=== PATIENT | male | born 1960 | race Caucasian/White ===

== ENCOUNTER 2019-02-03 16:07 | Inpatient (IN) ==
--- NOTE | 2019-02-03 17:47 | PROVIDER DOCUMENTATION ---
This chart was entered by Luz Marina Cole Scribe, acting as scribe for Bandar Fajardo MD. HPI-General Adult - General Chief Complaint: Vomiting Stated Complaint: RETURN/RECHECK Time Seen by Provider: 02/03/19 16:10 Source: patient Allergies/Adverse Reactions: Patient Allergies Allergy/AdvReac Type Severity Reaction Status Date / Time No Known Allergies Allergy Verified 01/03/19 02:50 Home Medications: Home Medication List Medication Instructions Recorded Confirmed Last Taken Type Alprazolam [Xanax] 1 mg PO TID 09/03/18 12/30/18 09/01/18 History 1 MG Levothyroxine Sodium [Synthroid] 50 mcg PO DAILY 09/03/18 12/30/18 09/01/18 History 50 MCG Omeprazole [Prilosec] 40 mg PO DAILY 09/03/18 12/30/18 09/01/18 History 40 MG Simvastatin 40 mg PO DAILY 09/03/18 12/30/18 09/01/18 History 40 MG Tizanidine HCl [Zanaflex] 4 mg PO PRN PRN 09/03/18 12/30/18 09/01/18 History 4 MG Potassium Citrate 10 meq PO DAILY #14 tablet.er 12/30/18 Unknown Rx Hydrocodone/Acetaminophen [Coyote 1 ea PO 4XDAY PRN PRN #14 tab 01/02/19 Unknown Rx 5-325 Tablet] Ondansetron Odt [Zofran 4 mg Odt] 4 mg PO Q6H PRN PRN #12 tab 01/03/19 Unknown Rx Dicyclomine [Bentyl] 20 mg PO BID #20 cap 01/12/19 Unknown Rx Ondansetron [Zofran] 4 mg PO Q6H PRN PRN #20 tab 01/12/19 Unknown Rx Potassium Chloride 20 meq PO DAILY 5 Days #5 02/03/19 Unknown Rx tab.er.prt - History of Present Illness -Gen Adult Nature of Presenting Problems: Patient is a 58 year old male who presents with epigastric abdominal pain, nausea and vomiting. Patient was seen in the ER then discharged home and went to the waiting room and started vomiting again. Location of Pain/Injury: reports: abdomen (epigastric) Pain Radiation: reports: no radiation Quality of Pain: reports: aching Severity: reports: mild Timing: reports: still present, getting worse Context/Activities at Onset: reports: light activity Associated Symptoms: reports: nausea, vomiting Similar Symptoms Previously?: Yes Recently seen or treated by another doctor?: Yes Review of Systems - Adult - REVIEW OF SYSTEMS - ADULT ROS:: limited per condition Constitutional: reports: no symptoms reported. denies: chills, fever, fatique Eyes: reports: no symptoms reported Ears, Nose, Mouth & Throat: reports: no symptoms reported Cardiovascular: reports: no symptoms reported Respiratory: reports: no symptoms reported Gastrointestinal: reports: see HPI, abdominal pain, nausea, vomiting. denies: diarrhea Genitourinary: reports: no symptoms reported Musculoskeletal: reports: no symptoms reported Integumentary: reports: no symptoms reported Neurological: reports: no symptoms reported Psychiatric: reports: no symptoms reported Endocrine: reports: no symptoms reported Hematologic/Lymphatic: reports: no symptoms reported Allergic/Immunologic: reports: no symptoms reported All Other Systems: Reviewed and Negative Past History - Adult - PAST MEDICAL HISTORY-ADULT Review of Records: reports: Old Records Reviewed, Nursing Assessment Review, Medications Reviewed, Social history reviewed & non-contributory. Major Childhood Illnesses: reports: denies history Cardiovascular: reports: hyperlipidemia Respiratory: reports: denies history Gastrointestinal: reports: GERD Obstetrical/Gynecological: reports: denies history Genitourinary: reports: denies history Musculoskeletal: reports: denies history Neurological: reports: denies history Psychiatric: reports: denies history Endocrine/Immune: reports: thyroid disorder Other Conditions: reports: denies history - PRIOR SURGERIES/PROCEDURES Surgical/Procedure History: reports: cholecystectomy - IMMUNIZATION STATUS Childhood Immunizations: See Nurse Assessment Flu Vaccine: See Nurse Assessment - FAMILY HISTORY Family History: reviewed, not pertinent - SOCIAL HISTORY Smoking: cigarettes, less than 1 pack/day Provider spent 3-5 mins advising pt. on dangers of tobacco.: Discussed manners to quit use, and f/u contacts for add'l counseling. Substance Use: alcohol Physical Exam-General - PHYSICAL EXAM-ADULT Initial Vital Signs Reviewed: Yes - CONSTITUTIONAL General Appearance: alert, mild distress, other (actively vomiting). negative: lethargic, slow to respond - RESPIRATORY Respiratory: chest non-tender, lungs clear, normal breath sounds. negative: crackles, rhonchi - CARDIOVASCULAR Cardiovascular: normal peripheral pulses, regular rate, rhythm. negative: tachycardia, systolic murmur - GASTROINTESTINAL (ABDOMEN) Abdominal Exam: normal bowel sounds, soft, tenderness (epigastric). negative: guarding, rebound - MUSCULOSKELETAL Extremity: non-tender, normal inspection. negative: deformity, erythema - SKIN Integumentary: normal color, normal turgor, warm/dry. negative: cyanosis, ecchymosis, erythema, jaundice, rash - NEUROLOGIC Neurologic: grossly normal. negative: aphasia, facial droop - PSYCHIATRIC Psych/Mental Status: oriented x 3. negative: anxious, paranoid Progress - PLAN OF CARE/RESULTS Progress/Plan/Lab Results: Vital Signs - 8 hr 02/03/19 16:10 Temperature 98.2 F Pulse Rate 105 H Respiratory Rate 20 Blood Pressure 115/77 O2 Sat by Pulse Oximetry 98 - CONSULTS/PCP/HOSPITALIST Notification #1 *Consult/PCP/Hospitalist*: RONI Hilliard for Hospitalist Time Discussed: 17:39 Reason/Comments: Dr. Fajardo consulted with [facility] about patient. Consult Disposition: Will see in ED, Admit Departure - Departure Date of Disposition Decision: 02/03/19 Time of Disposition Decision: 17:40 DIAGNOSIS: Alcoholism, Vomiting, Hypokalemia Disposition: ADMITTED INPATIENT 09 Certified Medical Emergency: Emergent Condition: Fair Referrals and Follow-Ups: Shellie Wood CRNP [Primary Care Provider] - - Critical Care Note This patient required my direct & personal management of CC.: Yes Total Time (mins): 32 Critical Care Statement: This patient required my direct personal management to treat or rule out processes, the absence of which, could potentiallly result in sudden, clinically significant life or limb threatening deterioration. Attestation - Physician/ PATSY Attestation Patient care was provided by Advanced Practice Provider:: No The physician spent face to face time with patient:: Yes Advanced Practice Provider documentation review:: Supervising physician onsite and consulted in the evaluation and care of this patient. The physician did have a face to face encounter with the patient. This chart was documented by the indicated scribe, (Luz Marina Cole Scribe) and accurately reflects the services I performed and decisions made by me, Bandar Alvarado MD, as attested by the provider's signature.
[2019-02-03] MEDS ORDERED: ZOFRAN IV PRN (18:43)
[2019-02-03] MEDS ORDERED: PHENERGAN PR PRN (18:43)
--- NOTE | 2019-02-03 20:38 | HISTORY AND PHYSICAL ---
CHIEF COMPLAINT: Nausea, vomiting, abdominal pain. HISTORY OF PRESENT ILLNESS: Mr. Pearce is a 58-year-old, male, who carries a past medical history of alcoholism, tobacco abuser, GERD, hypothyroidism, hyperlipidemia, brain aneurysm repair x2 after a fall back in 2004. He reports that he has been drinking heavily since around 2006. He drinks because he has lost all his family. He had quit for a 7-year stretch at one time. He can drink in a week anywhere from 2 cases of beer to half a gallon of whiskey. He came to the ED complaining of nausea, vomiting, diarrhea, and periumbilical pain, as well as black stools x2 weeks. His last drink was this a.m. with some wine. His nausea and vomiting has been ongoing for 3 days. He last saw his PCP, Shellie Wood, January 26. He came to the ER initially this morning, was given some intravenous fluids and antiemetics, and was discharged to go to [facility] before 3 p.m. However, the patient stayed around in the ED waiting room, continued to retch, and then signed himself back in later this afternoon. We will admit him to the medical floor, watch him for any alcohol withdrawals, provide him with p.r.n.'s, and try to get him over to [facility] tomorrow pending laboratory and diagnostic data. PAST MEDICAL HISTORY: 1. Alcoholism. 2. Tobacco abuse. 3. GERD. 4. Hyperlipidemia. 5. Hypothyroidism. PAST SURGICAL HISTORY: 1. Aneurysm repair x2, I believe, in [address] Martin, status post a fall. 2. Cholecystectomy in 2004. FAMILY HISTORY: A sister who with colon cancer, a mother who with an SD, alcoholism in father and brothers. He had a baby brother who from an SD as well as his father. He has no family left. He is currently homeless and living in a homeless camp on [facility]. He smokes a pack of cigarettes per day. He drinks 2 cases of beer per week and about a half a gallon of vodka within a week's time as well. ALLERGIES: No known drug allergies. HOME MEDICATIONS: Have not been reconciled. REVIEW OF SYSTEMS: A 12-point review of systems completely negative, except for those mentioned in the HPI. PHYSICAL EXAMINATION: VITAL SIGNS: Temperature is 98.2 degrees, heart rate 105, respirations 20, blood pressure 115/77, O2 is 98% on room air. GENERAL: Mr. Pearce is a pleasant, 58-year-old, male, who is lying on the stretcher. He does not appear in any acute distress. HEENT: Atraumatic, normocephalic. PERRL. NECK: Supple. Trachea midline. CARDIOVASCULAR: S1, S2 appreciated. No murmurs, gallops, rubs noted. RESPIRATORY: Lung sounds clear bilaterally. GASTROINTESTINAL: Soft. Tender in the periumbilical area. Positive bowel sounds, 4 quadrants. EXTREMITIES: Lower extremities are negative for any edema. No signs of clubbing or cyanosis. NEUROLOGIC: He is awake, alert, and oriented. Follows commands. Moves all extremities. Answers all questions appropriately. LABORATORY DATA: From earlier this morning: White count of 5, hemoglobin and hematocrit of 14 and 39, platelet count of 154,000. Chemistry: Sodium 140, potassium 2.8, BUN 9, creatinine 1, blood glucose was 101. Magnesium 1.5, AST 215, ALT 266, alkaline phosphatase 127. Troponin less than 0.010. Lipase was 48, amylase 128. ASSESSMENT AND PLAN: 1. Intractable nausea and vomiting. We will continue with antiemetics with IV Zofran MT, Phenergan if no relief with Zofran. We will continue with IV hydration. 2. Hypokalemia. He was given potassium in the ED earlier today. We will do a recheck. 3. Alcohol withdrawal. We will continue with the Librium taper, p.r.n. Ativan, banana bag daily. 4. Black tarry stools. We will rule out any GI bleeding with an occult stool. Continue to monitor his hemoglobins and hematocrits closely. Hemoglobin and hematocrit is currently stable. We will continue him on a PPI b.i.d. 5. Probable alcoholic cirrhosis. We will check a hepatitis profile and a right upper quadrant abdominal ultrasound. 6. Hyperlipidemia. Aware. 7. Gastroesophageal reflux disease. Continue PPI. 8. Hypothyroidism. We will recheck a TSH. 9. Further recommendations to follow physician evaluation, laboratory and diagnostic data. Dictated by RONI Sapp for Juwan Rayo MD cc: MD Shellie Crump CRYSTAL LAPPER
[2019-02-03] MEDS: NEXIUM IV SCH (20:45)
[2019-02-03] MEDS: LIBRIUM PO SCH (20:45)
[2019-02-03] MEDS: NS 1,000 ML IV SCH (20:45)
[2019-02-04] MEDS: LIBRIUM PO SCH ×5 (04:20→23:45)
[2019-02-04] MEDS: NS 1,000 ML IV SCH (04:20)
[2019-02-04] MEDS: SODIUM CHLORIDE 0.9% INJ SCH ×2 (05:52→18:50)
[2019-02-04] MEDS: NEXIUM IV SCH ×2 (05:52→18:50)
[2019-02-04 06:34] LABS: BASO# 0.02 X1000 (0.0-0.2); BASO% 0.4 % (0.0-0.8); EOS# 0.08 X1000 (0.0-0.7); EOS% 1.7 % (0.0-10.0); HEMATOCRIT 38.9 % (42.0-52.0); HEMOGLOBIN 13.7 g/dL (14.0-18.0); LYMPH# 1.15 X1000 (1.2-3.4); LYMPH% 24.2 % (20.5-51.1); MCHC 35.2 g/dL (33-37); MCV 99.5 FL (81-99); MONO# 0.67 X1000 (0.11-0.59); MONO% 14.1 % (1.7-9.3); MPV 10.8 FL (7.4-10.4); NEUT# 2.84 X1000 (1.4-6.5); NEUT% 59.6 % (42.2-75.2); PLT 139 X1000 (130-400); RBC 3.91 XMIL (4.7-6.1); RDW 14.5 % (11.5-14.5); WBC 4.76 X1000 (4.8-10.8)
[2019-02-04 06:59] LABS: AGAP 12; ALB/GLOB RATIO 1.5; ALBUMIN 4.1 g/dL (3.5-5.0); ALKALINE PHOSPHATASE 114 U/L (32-122); BUN 7 mg/dL (8-22); CHLORIDE 98 mmol/L (98-107); COSMO 271; CREATININE 0.9 mg/dL (0.7-1.2); ESTIMATED GFR > 60; GLUCOSE 93 mg/dL (70-104); GOT 205 U/L (10-34); GPT 239 U/L (10-44); MAGNESIUM 1.6 mg/dL (1.5-2.7); POTASSIUM 2.6 mmol/L (3.5-5.1); SODIUM 137 mmol/L (136-145); TCO2 27 mmol/L (25-35); TOTAL BILIRUBIN 0.84 mg/dL (0.20-1.00); TOTAL PROTEIN 6.9 g/dL (6.3-8.3)
[2019-02-04 07:13] LABS: FREE T4 1.37 ng/dL (0.93-1.70); TSH 3.55 uIUmL (0.27-4.20)
--- NOTE | 2019-02-04 07:46 | Diag Imaging Result Doc PS360 ---
EXAM: US GB < RUQ (LIMITED) HISTORY: lft's alcoholic TECHNIQUE: Right upper quadrant ultrasound COMPARISON: CT from 01/02/2019 FINDINGS: No focal pancreatic abnormality. No abdominal aortic aneurysm. Normal inferior vena cava. There is fatty infiltration of the liver. No focal hepatic normality. The gallbladder has been removed. Normal right kidney. No hydronephrosis. There is a small 1.5 cm renal cyst. The common bile duct measures 4 mm. IMPRESSION: 1.Fatty infiltration of liver 2.Cholecystectomy 3.Small right renal cyst Electronically signed by Ta Flor 02/04/2019 7:44 AM
[2019-02-04] MEDS ORDERED: KLOR-CON PO ONE (08:33)
[2019-02-04] MEDS: M.V.I.-12 10 ML, FOLIC ACID 1 MG, MAGNESIUM SULFATE 1 GM, THIAMINE 100 MG in NS 1,000 ML IV SCH (09:31)
[2019-02-04] MEDS: SYNTHROID PO SCH (09:36)
[2019-02-04] MEDS: ATIVAN IV PRN (12:14)
[2019-02-04] MEDS ORDERED: NS 1,000 ML IV SCH (12:45)
--- NOTE | 2019-02-04 14:53 | PROGRESS NOTE ---
DATE: 02/04/2019 SUBJECTIVE: This patient is feeling a little bit better. He is still complaining of some abdominal discomfort, some shakiness. I will advance his diet from liquid diet to full liquid diet. I will replace his potassium and I will continue to monitor this patient closely. OBJECTIVE: Vital Signs: Temperature 97.9 degrees, pulse 73, respiratory rate 17, blood pressure 115/88, oxygen saturation 98 on room air. HEENT: Head normocephalic. No trauma. PERRLA. Neck: Supple. No JVD. Central trachea. Chest: Clear to auscultation. No wheezing. No rales. Abdomen: Soft. Some tenderness to palpation allowed around the periumbilical area. Positive bowel sounds. Extremities: No edema. No clubbing. No cyanosis. Neurological: This patient is alert, awake. He is oriented. He is following commands. He moves all 4 extremities. LABORATORY DATA: WBC 4.7, hemoglobin 13.7, hematocrit 99.5, platelets 139,000. Sodium 137, potassium 2.6, chloride 98, bicarbonate 27, BUN 7, creatinine 0.9, glucose 93, calcium 8. AST 205, ALT 239, alkaline phosphatase 114. ASSESSMENT AND PLAN: 1. Intractable nausea and vomiting. We will continue with IV fluids. We will continue with Zofran. We will continue to monitor this patient. He is tolerating p.o., clear liquid diet and I will advance it to full liquid diet. 2. Hypokalemia. I will replace the potassium today. 3. Alcohol withdrawal. I will continue with Librium taper and p.r.n. Ativan as needed, continue with banana bag. 4. Black tarry stools, we need to rule out GI bleed with an occult blood in the stool. Continue to monitor. His hemoglobin and hematocrit are stable; hemoglobin 13.7, hematocrit 38.9. Likely this is going to drop due to IV fluids, continue with proton pump inhibitors. 5. Fatty infiltration of the liver. Apparently, he is not showing liver cirrhosis, but fatty liver, likely this is due to alcohol abuse. 6. Alcohol abuse. This patient has been highly advised against alcohol use. I will continue with daily cessation education. 7. Gastroesophageal reflux disease. Continue with proton pump inhibitors. 8. Hyperlipidemia. Aware. 9. Hypothyroidism. We have checked the TSH and it is within normal limits. cc: Juwan Rayo MD
[2019-02-04] MEDS ORDERED: POTASSIUM CHLORIDE 20 MEQ in NS 1,000 ML IV SCH (15:45)
[2019-02-04] MEDS: NS + KCL 20 MEQ 1,000 ML IV SCH (17:25)
[2019-02-04] MEDS: ZOLOFT PO SCH (20:16)
[2019-02-05] MEDS: SODIUM CHLORIDE 0.9% INJ SCH ×2 (05:35→18:05)
[2019-02-05] MEDS: NEXIUM IV SCH ×3 (05:35→18:05)
[2019-02-05] MEDS: LIBRIUM PO SCH ×4 (05:35→20:42)
[2019-02-05 06:36] LABS: BASO# 0.02 X1000 (0.0-0.2); BASO% 0.5 % (0.0-0.8); EOS# 0.08 X1000 (0.0-0.7); EOS% 1.8 % (0.0-10.0); HEMATOCRIT 36.5 % (42.0-52.0); HEMOGLOBIN 12.6 g/dL (14.0-18.0); LYMPH# 1.46 X1000 (1.2-3.4); LYMPH% 32.9 % (20.5-51.1); MCH 34.8 PG (27-31); MCHC 34.5 g/dL (33-37); MCV 100.8 FL (81-99); MONO# 0.56 X1000 (0.11-0.59); MONO% 12.6 % (1.7-9.3); MPV 10.7 FL (7.4-10.4); NEUT# 2.32 X1000 (1.4-6.5); NEUT% 52.2 % (42.2-75.2); PLT 147 X1000 (130-400); RBC 3.62 XMIL (4.7-6.1); RDW 14.4 % (11.5-14.5); WBC 4.44 X1000 (4.8-10.8)
[2019-02-05] MEDS: NS + KCL 20 MEQ 1,000 ML IV SCH (06:47)
[2019-02-05 07:39] LABS: AGAP 11; ALB/GLOB RATIO 1.4; ALBUMIN 3.8 g/dL (3.5-5.0); ALKALINE PHOSPHATASE 93 U/L (32-122); BUN 6 mg/dL (8-22); CALCIUM 8.8 mg/dL (8.8-10.2); CHLORIDE 105 mmol/L (98-107); COSMO 275; CREATININE 0.7 mg/dL (0.7-1.2); ESTIMATED GFR > 60; GLUCOSE 89 mg/dL (70-104); GOT 176 U/L (10-34); GPT 210 U/L (10-44); MAGNESIUM 1.5 mg/dL (1.5-2.7); PHOSPHORUS 1.7 mg/dL (2.7-4.5); POTASSIUM 3.3 mmol/L (3.5-5.1); SODIUM 139 mmol/L (136-145); TCO2 23 mmol/L (25-35); TOTAL BILIRUBIN 0.49 mg/dL (0.20-1.00); TOTAL PROTEIN 6.6 g/dL (6.3-8.3)
[2019-02-05] MEDS: SYNTHROID PO SCH (08:58)
[2019-02-05] MEDS: M.V.I.-12 10 ML, FOLIC ACID 1 MG, MAGNESIUM SULFATE 1 GM, THIAMINE 100 MG in NS 1,000 ML IV SCH (08:58)
[2019-02-05] MEDS ORDERED: MAGNESIUM SULFATE 2 GM/S.W.I. 2 GM/50 ML IVPB IV ONE (10:53)
[2019-02-05] MEDS ORDERED: POTASSIUM PHOSPHATE 40 MMOL in NS 250 ML IV ONE (10:53)
[2019-02-05 13:46] LABS: HEPATITIS PROFILE ACUTE SEE COMMENTS
--- NOTE | 2019-02-05 19:06 | PROGRESS NOTE ---
DATE: 02/05/2019 SUBJECTIVE: Patient is feeling better, but now he is complaining of abdominal pain and diarrhea. He is still having some shakiness, but compared with yesterday is better. I will advance the diet today again. I will stop the IV fluids. I will replace the magnesium, phosphorus, and potassium, and I will decrease the dose of Librium from every 6 hours to every 8 hours. OBJECTIVE: Vital Signs: Temperature 97.9 degrees, pulse 82, respiratory rate 18, blood pressure 115/75, oxygen saturation 96 on room air. HEENT: Head normocephalic, no trauma. PERRLA. Neck: Supple. No JVD. Central trachea. Chest: Clear to auscultation. No wheezing. No rales. Abdomen: Soft. Tenderness to palpation at the level of the periumbilical area. Positive bowel sounds. Extremities: No edema, no clubbing, no cyanosis. Neurological: This patient is awake, alert. He is oriented. He is having some hand tremors, and he seems to be a little bit anxious, but he moves all 4 extremities. LABORATORY: WBC 4.4, hemoglobin 12.6, hematocrit 36.5, platelets 147,000. Sodium 139, potassium 3.3, chloride 105, bicarbonate 23, BUN 6, creatinine 0.7, glucose 89, calcium 8.8, phosphorus 1.7, AST 176, ALT 210, alkaline phosphatase 93. ASSESSMENT AND PLAN: 1. Intractable nausea and vomiting, resolved. He is tolerating p.o. We will continue with Zofran as needed. We will continue to monitor this patient. I have advanced the diet. 2. Electrolyte imbalance, including hypokalemia, hypomagnesemia, and hypophosphatemia. I will replace all the electrolytes. 3. Alcohol withdrawal symptoms. He is still having some hand tremors. He seems to be a little bit anxious today compared with yesterday. I will decrease the dose of the Librium, and I will continue with Ativan as needed. Continue with banana bag. 4. Black tarry stools. His hemoglobin dropped from 13.7 to 12.6. Now he is having diarrhea. He does not see any black stools or any blood in the stools. We will monitor. 5. Fatty infiltration of the liver, likely due to alcohol abuse. We will need to set up an appointment with Gastroenterology Department. Likely this patient will need to be scoped as an outpatient. 6. Alcohol abuse. This patient has been highly advised against alcohol use. I will continue with daily cessation education, and I will continue with Librium. 7. Gastroesophageal reflux disease. Continue with proton pump inhibitors. 8. Hyperlipidemia. Aware. 9. Hypothyroidism. TSH within normal limits. Overall, this patient is doing better. Probably I will discharge this patient in the next 24 to 48 hours. He is homeless. He is feeling better. We have a positive occult blood in the stool, but he his hemoglobin has been stable, a little bit lower compared with admission, but he was slightly dehydrated, and he has been receiving IV fluids so we will monitor for now. cc: Juwan Rayo MD
[2019-02-05] MEDS: ZOLOFT PO SCH (20:42)
[2019-02-06] MEDS: NEXIUM IV SCH ×2 (05:28→17:56)
[2019-02-06] MEDS: LIBRIUM PO SCH ×3 (05:28→21:52)
[2019-02-06] MEDS: SODIUM CHLORIDE 0.9% INJ SCH (05:28)
[2019-02-06 07:43] LABS: BASO# 0.05 X1000 (0.0-0.2); EOS# 0.11 X1000 (0.0-0.7); EOS% 2.3 % (0.0-10.0); HEMATOCRIT 36.2 % (42.0-52.0); HEMOGLOBIN 12.4 g/dL (14.0-18.0); LYMPH# 1.45 X1000 (1.2-3.4); LYMPH% 29.7 % (20.5-51.1); MCH 34.8 PG (27-31); MCHC 34.3 g/dL (33-37); MCV 101.7 FL (81-99); MONO% 12.3 % (1.7-9.3); NEUT# 2.67 X1000 (1.4-6.5); NEUT% 54.7 % (42.2-75.2); PLT 172 X1000 (130-400); RBC 3.56 XMIL (4.7-6.1); RDW 14.4 % (11.5-14.5); WBC 4.88 X1000 (4.8-10.8)
[2019-02-06 07:57] LABS: AGAP 10; ALB/GLOB RATIO 1.4; ALBUMIN 3.6 g/dL (3.5-5.0); ALKALINE PHOSPHATASE 84 U/L (32-122); BUN 11 mg/dL (8-22); CALCIUM 9.1 mg/dL (8.8-10.2); CHLORIDE 106 mmol/L (98-107); COSMO 279; CREATININE 0.7 mg/dL (0.7-1.2); ESTIMATED GFR > 60; GLUCOSE 95 mg/dL (70-104); GOT 91 U/L (10-34); GPT 153 U/L (10-44); POTASSIUM 3.5 mmol/L (3.5-5.1); SODIUM 140 mmol/L (136-145); TCO2 24 mmol/L (25-35); TOTAL BILIRUBIN 0.18 mg/dL (0.20-1.00); TOTAL PROTEIN 6.2 g/dL (6.3-8.3)
[2019-02-06] MEDS: M.V.I.-12 10 ML, FOLIC ACID 1 MG, MAGNESIUM SULFATE 1 GM, THIAMINE 100 MG in NS 1,000 ML IV SCH (09:30)
[2019-02-06] MEDS: SYNTHROID PO SCH (09:31)
[2019-02-06] MEDS: ZOLOFT PO SCH (21:52)
[2019-02-07] MEDS: LIBRIUM PO SCH ×5 (02:46→22:24)
--- NOTE | 2019-02-07 04:03 | PROGRESS NOTE ---
DATE: 02/06/2019 SUBJECTIVE: The patient today is not feeling too good, he is complaining of abdominal pain and diarrhea. His tremors are better. I will decrease the dose of Librium. He is tolerating p.o. I will ask for stool studies including C. Diff toxin and antigen. Laboratory showed also hepatitis C. As per the patient, he knew that he had hepatitis, but he did not remember what type. I will ask for hepatitis C genotype and viral load. OBJECTIVE: Vital Signs: Temperature 97.7 degrees, pulse 74, respiratory rate 18, blood pressure 116/76, and oxygen saturation 99 on room air. HEENT: Head normocephalic. No trauma. PERRLA. Neck: Supple. No JVD. No masses. Central trachea. Chest: Clear to auscultation. No wheezing. No rales. Abdomen: Soft. Tenderness to palpation at the level of the periumbilical area. Positive bowel sounds. Extremities: No edema. No clubbing. No cyanosis. Neurological: The patient is awake and alert. He is oriented. He is having some hand tremors, Abdomen: A little bit distended. LABORATORY: WBC 4.8, hemoglobin 12.4, hematocrit 36.2, and platelets 172,000. Sodium 140, potassium 3.5, chloride 106, bicarbonate 24, BUN 11, creatinine 0.7, glucose 95, and calcium 9.1. AST 91, ALT 153, and alkaline phosphatase 84. ASSESSMENT AND PLAN: 1. Intractable nausea and vomiting, resolved. He is tolerating p.o. but now he is getting diarrhea. We will continue with Zofran as needed. We will continue to monitor this patient. 2. Electrolyte imbalance including hypokalemia, hypomagnesemia, and hypophosphatemia. The potassium level is normal today. I will recheck the magnesium level and phosphorus level again in the morning. 3. Alcohol withdrawal symptoms. He is still having a little bit of hand tremors. He is not that anxious today. I will decrease the dose of Librium, and I will continue to monitor the patient. Ativan as needed. Continue with banana bag, but probably I will switch it to p.o. this weekend. 4. Black tarry stools with the hemoglobin dropped from 13.7 to 12.6, and now 12.4. The hemoglobin is stable. The decrease of the hemoglobin was suspected due to the IV fluids. Now, he is not having dark stools. It is brown, but he is having diarrhea. 5. Diarrhea as above. 6. Fatty infiltration of the liver, likely due to alcohol abuse. We will need to set up an appointment with gastroenterology department for this. Likely, this patient needs to be scoped as an outpatient. 7. Hepatitis C. I just received a result that showed hepatitis C. I have requested the viral load and also requested the genotypes. He will need to be treated as an outpatient. 8. Alcohol abuse. This patient has been highly advised against alcohol use. We will continue with daily cessation education. I will continue with Librium and banana bag. 9. Gastroesophageal reflux disease. Continue proton pump inhibitors. 10. Hyperlipidemia. Aware. 11. Hypothyroidism. Continue with same management. TSH within normal limits. This patient seems to be doing a little bit better. I believe this patient needs to spend the weekend. He is having abdominal pain and diarrhea. As per the patient, it is brown and really watery. He has not seen blood or dark stools. He feels weak. He has some hand tremors. Also, we are trying to get placement for this patient since he is homeless, maybe to a nursing home. cc: Juwan Rayo MD
[2019-02-07] MEDS: SODIUM CHLORIDE 0.9% INJ SCH ×2 (06:06→17:46)
[2019-02-07] MEDS: NEXIUM IV SCH ×3 (06:06→17:48)
[2019-02-07 06:41] LABS: BASO# 0.02 X1000 (0.0-0.2); BASO% 0.3 % (0.0-0.8); EOS# 0.16 X1000 (0.0-0.7); EOS% 2.7 % (0.0-10.0); HEMATOCRIT 37.9 % (42.0-52.0); HEMOGLOBIN 12.8 g/dL (14.0-18.0); IMM GRAN# 0.02 X1000 (0.0-0.04); IMM GRAN% 0.3 % (0.0-0.5); LYMPH# 1.83 X1000 (1.2-3.4); LYMPH% 30.7 % (20.5-51.1); MCH 34.4 PG (27-31); MCHC 33.8 g/dL (33-37); MCV 101.9 FL (81-99); MONO# 0.55 X1000 (0.11-0.59); MONO% 9.2 % (1.7-9.3); MPV 10.8 FL (7.4-10.4); NEUT# 3.39 X1000 (1.4-6.5); NEUT% 56.8 % (42.2-75.2); PLT 188 X1000 (130-400); RBC 3.72 XMIL (4.7-6.1); RDW 14.3 % (11.5-14.5); WBC 5.97 X1000 (4.8-10.8)
[2019-02-07 07:15] LABS: AGAP 11; ALB/GLOB RATIO 1.6; ALKALINE PHOSPHATASE 82 U/L (32-122); BUN 14 mg/dL (8-22); CALCIUM 9.1 mg/dL (8.8-10.2); CHLORIDE 104 mmol/L (98-107); COSMO 278; CREATININE 0.8 mg/dL (0.7-1.2); ESTIMATED GFR > 60; GLUCOSE 90 mg/dL (70-104); GOT 64 U/L (10-34); GPT 125 U/L (10-44); MAGNESIUM 1.6 mg/dL (1.5-2.7); POTASSIUM 3.5 mmol/L (3.5-5.1); SODIUM 139 mmol/L (136-145); TCO2 24 mmol/L (25-35); TOTAL BILIRUBIN 0.25 mg/dL (0.20-1.00); TOTAL PROTEIN 6.5 g/dL (6.3-8.3)
[2019-02-07] MEDS: SYNTHROID PO SCH (09:49)
[2019-02-07] MEDS: M.V.I.-12 10 ML, FOLIC ACID 1 MG, MAGNESIUM SULFATE 1 GM, THIAMINE 100 MG in NS 1,000 ML IV SCH (09:49)
--- NOTE | 2019-02-07 19:53 | PROGRESS NOTE ---
DATE: 02/07/2019 SUBJECTIVE: This patient is feeling better compared with yesterday. He is still complaining of abdominal pain, but no diarrhea today. Tremors are better. I will continue with Librium, low dose. Pending C difficile antigen and toxin, stool collection. OBJECTIVE: Vital Signs: Temperature 97.5 degrees, pulse 72, respiratory rate 20, blood pressure 114/72, oxygen saturation 99 on room air. HEENT: Head normocephalic. No trauma. PERRLA. Neck: Supple. No JVD. No masses. Central trachea. Chest: Clear to auscultation. No wheezing. No rales. Abdomen: Soft. Generalized tenderness to palpation mostly at the level of the periumbilical area. Positive bowel sounds. It is distended and protuberant. Extremities: No edema. No clubbing. No cyanosis. Neurological: The patient is awake, alert, he is oriented. He is having some hand tremors. He is not anxious today. LABORATORY: WBC 5.9, hemoglobin 12.8, hematocrit 37.9, platelets 188,000. Sodium 139, potassium 3.5, chloride 104, bicarbonate 24, BUN 14, creatinine 0.8, glucose 90, calcium 9.1, AST 64, ALT 125, alkaline phosphatase 82. ASSESSMENT AND PLAN: 1. Intractable nausea and vomiting, resolved. He is tolerating p.o. Continue with same management. 2. Electrolyte imbalance including hyponatremia, hypomagnesemia, hypophosphatemia, resolved. Continue to monitor. 3. Alcohol withdrawal symptoms. We will continue with same management. He seems to be doing better. 4. Black tarry stools with a hemoglobin of 12.8, and it has been stable. We will continue to monitor. I do not think he is having an active bleeding. 5. Diarrhea. He has not had any episodes of diarrhea, but he is complaining of abdominal pain. We will continue with the same management. 6. Fatty infiltration of the liver, likely secondary to alcohol abuse. 7. Hepatitis C. I already requested viral load and genotype. He needs to follow up with Gastroenterology as an outpatient. 8. Alcohol abuse. This patient has been highly advised against alcohol use. I will continue with daily cessation education. 9. Gastroesophageal reflux disease. Continue with proton pump inhibitors. 10. Hyperlipidemia. Aware. 11. Hypothyroidism. Continue with same management. This patient seems to be doing better. He is homeless and I am worried about sending this patient home and hepatitis C treatment. I will set up an appointment for him with Gastroenterology once he is ready to go home. cc: Juwan Rayo MD
[2019-02-07] MEDS: ZOLOFT PO SCH (21:00)
[2019-02-08] MEDS: SODIUM CHLORIDE 0.9% INJ SCH ×2 (06:20→22:31)
[2019-02-08] MEDS: LIBRIUM PO SCH (06:21)
[2019-02-08] MEDS: NEXIUM IV SCH (06:21)
[2019-02-08 07:03] LABS: AGAP 11; BUN 15 mg/dL (8-22); CHLORIDE 106 mmol/L (98-107); COSMO 280; CREATININE 0.9 mg/dL (0.7-1.2); ESTIMATED GFR > 60; GLUCOSE 94 mg/dL (70-104); POTASSIUM 3.8 mmol/L (3.5-5.1); SODIUM 140 mmol/L (136-145); TCO2 23 mmol/L (25-35)
[2019-02-08] MEDS: SYNTHROID PO SCH (08:36)
[2019-02-08] MEDS: M.V.I.-12 10 ML, FOLIC ACID 1 MG, MAGNESIUM SULFATE 1 GM, THIAMINE 100 MG in NS 1,000 ML IV SCH (08:36)
--- NOTE | 2019-02-08 12:02 | PROGRESS NOTE ---
DATE: 02/08/2019 SUBJECTIVE: The patient is feeling better. His abdominal pain is getting better also. No diarrhea. His tremors are better. I have decreased the dose of Librium today to once a day and hopefully tomorrow I will be able to stop it. Hopefully tomorrow also he everything is okay I will discharge this patient home. OBJECTIVE: Vital Signs: Temperature 98.7 degrees, pulse 71 respiratory rate 20, blood pressure 150/77, oxygen saturation 100%on room air. HEENT: Head normocephalic, no trauma. PERRLA. Neck: Supple. No JVD. No masses. Central trachea. Chest: Clear to auscultation. No wheezing. No rales. Abdomen: Soft. Generalized tenderness to palpation, mostly epigastric and periumbilical area. Positive bowel sounds, it is distended, protuberant. Extremities: No edema, no clubbing, no cyanosis. Neurological: The patient is awake, alert. He is oriented. He is having some tremors but much better compared with the previous days. He is not anxious. LABORATORY: Sodium 140, potassium 3.8, chloride 106, bicarbonate 23, BUN 15, creatinine 0.9 glucose 94, calcium 9. ASSESSMENT AND PLAN: 1. Intractable nausea and vomiting resolved. 2. Electrolyte imbalance including hyponatremia, hypomagnesemia, hypophosphatemia, resolved. 3. Alcohol withdrawal symptoms. This is much better. He will receive his last dose of Librium today and I will monitor. 4. Black tarry stools, hemoglobin has been stable. He reported his last bowel movements were brown and liquid with no blood or melena. 5. Diarrhea. No episodes of diarrhea yesterday or today. We will continue with the same treatment. 6. Fatty infiltration of the liver, likely secondary to alcohol abuse. 7. Hepatitis C. I already requested viral load and genotypes. He needs to follow up with gastroenterology department likely as an outpatient. 8. Alcohol abuse. This patient has been highly advised against alcohol use. I will continue with daily cessation education. As per the patient, he is not going to drink anymore. 9. Gastroesophageal reflux disease, continue with proton pump inhibitors. 10. Hyperlipidemia, aware. 11. Hypothyroidism, continue with same management. 12. The patient seems to be doing better. He is homeless and I am worried to send this patient out especially with a history of hepatitis C, alcohol. I will wait for the social media job titles to try to help him with the medications. Also I need to set up an appointment with public health. I will discuss the case with the case therapist tomorrow. cc: Juwan Rayo MD
[2019-02-08] MEDS: ZOLOFT PO SCH (22:31)
[2019-02-09] MEDS: NEXIUM IV SCH ×2 (00:05→09:30)
[2019-02-09 06:48] LABS: BASO# 0.05 X1000 (0.0-0.2); BASO% 0.7 % (0.0-0.8); EOS% 2.9 % (0.0-10.0); HEMATOCRIT 36.9 % (42.0-52.0); HEMOGLOBIN 12.4 g/dL (14.0-18.0); IMM GRAN# 0.02 X1000 (0.0-0.04); IMM GRAN% 0.3 % (0.0-0.5); LYMPH# 2.23 X1000 (1.2-3.4); LYMPH% 32.8 % (20.5-51.1); MCH 34.7 PG (27-31); MCHC 33.6 g/dL (33-37); MCV 103.4 FL (81-99); MONO# 0.68 X1000 (0.11-0.59); MPV 10.6 FL (7.4-10.4); NEUT# 3.61 X1000 (1.4-6.5); NEUT% 53.3 % (42.2-75.2); PLT 205 X1000 (130-400); RBC 3.57 XMIL (4.7-6.1); RDW 14.1 % (11.5-14.5); WBC 6.79 X1000 (4.8-10.8)
[2019-02-09 07:11] LABS: POTASSIUM 3.7 mmol/L (3.5-5.1); SODIUM 140 mmol/L (136-145)
[2019-02-09 07:12] LABS: AGAP 8; ALB/GLOB RATIO 1.5; ALBUMIN 3.8 g/dL (3.5-5.0); ALKALINE PHOSPHATASE 73 U/L (32-122); BUN 18 mg/dL (8-22); CALCIUM 8.5 mg/dL (8.8-10.2); CHLORIDE 106 mmol/L (98-107); COSMO 281; CREATININE 0.9 mg/dL (0.7-1.2); ESTIMATED GFR > 60; GLUCOSE 94 mg/dL (70-104); GOT 46 U/L (10-34); GPT 88 U/L (10-44); TCO2 26 mmol/L (25-35); TOTAL BILIRUBIN < 0.15 mg/dL (0.20-1.00); TOTAL PROTEIN 6.3 g/dL (6.3-8.3)
[2019-02-09] MEDS ORDERED: LIBRIUM PO SCH (09:00)
[2019-02-09] MEDS: M.V.I.-12 10 ML, FOLIC ACID 1 MG, MAGNESIUM SULFATE 1 GM, THIAMINE 100 MG in NS 1,000 ML IV SCH (09:29)
[2019-02-09] MEDS: SODIUM CHLORIDE 0.9% INJ SCH (09:30)
[2019-02-09] MEDS: SYNTHROID PO SCH (09:30)
[2019-02-09] MEDS: ATIVAN IV PRN (09:39)
[2019-02-09 11:37] VITALS: BP 150/77
--- NOTE | 2019-02-09 18:42 | DISCHARGE SUMMARY ---
ADMISSION DATE: 02/05/2019 DISCHARGE DATE: 02/09/2019 DISCHARGE DIAGNOSES: 1. Intractable nausea and vomiting, resolved. 2. Electrolyte imbalance, including hyponatremia, hypomagnesemia, hypophosphatemia. 3. Alcohol withdrawal symptoms. 4. Diarrhea. 5. Positive occult blood in the stool. 6. Fatty infiltration of the liver, secondary to alcohol abuse. 7. Hepatitis C. 8. Alcohol abuse. 9. Gastroesophageal reflux disease. 10. Hyperlipidemia. 11. Hypothyroidism. PROCEDURES PERFORMED: Abdominal ultrasound, dated 02/04/2019, impression: Fatty infiltration of the liver, cholecystectomy, a small right renal cyst. HOSPITAL COURSE: A 58-year-old male with a past medical history of alcoholism, tobacco abuser, GERD, hypothyroidism, hyperlipidemia, brain aneurysm repair x2 after a fall back in 2004. He was admitted on 02/03/2019. As per the patient, he has been drinking heavily since around 2004 or 2006, and he drinks because he has lost all his family, even though he states that he has a daughter and a grandson here in the area. He came in complaining of nausea, vomiting, diarrhea, and periumbilical pain, as well as black stools x2 weeks. His last drink was the same day of admission with wine. His nausea and vomiting have been nonstop for 3 days prior to admission. He has a PCP, Shellie Wood. On 01/26/2019, because of his nausea, vomiting, and diarrhea, he was hospitalized and put on IV fluids. We watched him for alcohol withdrawal. We started him on medications like Ativan as needed for seizures, withdrawal symptoms, or agitation, delirium tremens. He was placed on a banana bag as well. His diarrhea was controlled. His nausea and vomiting improved after a few days, but his abdominal pain was always present. He started to tolerate p.o. slowly. He started having withdrawal symptoms with shakiness and anxiety. We put this patient on Librium and he felt better on a daily basis. We decreased the amount of Librium daily. His LFTs were elevated and his hepatitis C was positive. I had a really large conversation with this patient about those results. He is homeless and I am concerned about him going home in the [place] (Actually, he lives in a tent.) and start drinking again, but he basically promised that he does not want to drink anymore. He wants to stay away from alcoholics as well. He is feeling much better today and he will be discharged. He is tolerating p.o. He does not have diarrhea. Abdominal ultrasound showed fatty liver, likely due to alcohol abuse. hand bindery assembly worker tried to help him find some shelters for him, but he refused that because they are not close to [place], and he wants to be close to his daughter and grandson. We are going to provide some bus tickets so he can go to the last turner's office. I personally called Dr. De La Rosa today and I explained to him all the situation, I told him that is homeless and he has hepatitis C, fatty liver, and he is an alcoholic. He accepted the patient and asked me to call the office for an appointment. This patient will be seen on 02/25/2019 at 9:45 a.m. This has been explained to the patient and he seems to understand. Also, we provided information for this patient to get involved in the [employer] program, so he can be helped with the alcoholism. This patient will be will be discharged in stable medical condition. No signs of withdrawal, he is tolerating p.o., and he is ambulating. OBJECTIVE: Vital Signs: Temperature 98 degrees, pulse 69, respiratory rate 16, blood pressure 160/77, oxygen saturation 100% on room air. HEENT: Head normocephalic, no trauma. PERRLA. Neck: Supple. No JVD. No masses. Central trachea. Chest: Clear to auscultation. No wheezing. No rales. Abdomen: Soft. Mild tenderness to palpation, mostly epigastric and periumbilical area. Positive bowel sounds. Slightly distended, protuberant. Extremities: No edema, no clubbing, no cyanosis. Neurological: The patient is alert. He is oriented x3. No focal deficits. LABORATORY: WBC 6.7, hemoglobin 12.4, hematocrit 36.9, platelets 205,000. Sodium 140, potassium 3.7, chloride 106, bicarbonate 26, BUN 18, creatinine 0.9, glucose 94, calcium 8.5, AST 46, ALT 88, alkaline phosphatase 73. DISCHARGE MEDICATIONS: 1. Hydrochlorothiazide 25 mg p.o. daily. 2. Levothyroxine 50 mcg p.o. daily. 3. Prilosec 40 mg p.o. daily. 4. Sertraline 100 mg p.o. at bedtime. TIME SPENT DISCHARGING PATIENT: 35 minutes. cc: Juwan Rayo MD
[2019-02-09 21:13] LABS: HEPATITIS C GENOTYPE SEE COMMENTS
[2019-02-10 11:15] LABS: HCV BY PCR SEE COMMENTS
== END 2019-02-09 15:11 | disposition home or self-care (01) | DRG 897 ==
LOC: ED 16:07 → 4N 16:07
PROVIDERS: ATTEND Internal Medicine
CPT/HCPCS: 76705; 80048; 80053; 80074; 80307; 80320; 81001; 82055; 82150; 82270; 82607; 82746; 82948; 83690; 83735; 84100; 84132; 84439; 84443; 85025; 87522; 87902; 93005; A9270; G0480; G6040; J2060; J2405; J3411; J3475; J3480; J7030; J7050; XXXXX